=== PATIENT | female | born 1955 | race Caucasian/White ===

== ENCOUNTER → 2020-12-09 10:17 | Outpatient (CLI) | payer BC, SELFPAY ==
--- NOTE | ~2020-12-09 | XR_ITS ---
XR chest 2V DATE: 12/09/2020 10:56 INDICATION: Cough TECHNIQUE: 2 views COMPARISON: 11/04/2013 2 view chest FINDINGS: Normal heart size. Mild aortic unfolding. No hilar or mediastinal enlargement. No pulmonary infiltrate or consolidation, pleural effusion or pulmonary vascular congestion or pneumo thorax is detected. Diffuse osteopenia. There is mild degenerative change of the thoracic spine. IMPRESSION: No active cardiopulmonary disease Reviewed, dictated and finalized at location A. TRO OPTICAL ENGINEER
== END ==
PROVIDERS: PCP Family Medicine; Visit Provider Family Medicine
DX: R05 Cough (principal)
CPT/HCPCS: 71046

== ENCOUNTER → 2021-08-06 09:20 | Outpatient (CLI) | payer BC, SELFPAY ==
--- NOTE | ~2021-08-06 | XR_ITS ---
XR knee RT 3V, XR knee LT 3V 08/06/2021 09:46 Indication: Knee pain Procedure: 3 views each knee Comparison: No prior studies for comparison. Findings: There is mild bilateral tricompartment osteoarthritis of the knees. No fracture, subluxatio n or dislocation. No significant joint effusion. No foreign bodies. No focal lytic or blastic lesions . Impression: 1: Mild bilateral tricompartment osteoarthritis of the knees. Reviewed, dictated and finalized at location D. Impression: 1: Mild bilateral tricompartment osteoarthritis of the knees. Impression: 1: Mild bilateral tricompartment osteoarthritis of the knees.
== END ==
PROVIDERS: PCP Family Medicine; Visit Provider Physician Assistant
DX: M17.0 Bilateral primary osteoarthritis of knee (principal)
CPT/HCPCS: 73562

== ENCOUNTER → 2021-11-30 09:45 | Outpatient (CLI) | payer MEDICARE, OTHER, SELFPAY ==
--- NOTE | ~2021-11-30 | XR_ITS ---
XR foot RT min 3V DATE: 11/30/2021 10:04 INDICATION: Right ankle pain right foot pain. TECHNIQUE: 4 views COMPARISON: 04/19/2010 right foot 12/04/2010 right foot FINDINGS: Diffuse osteopenia. Old fracture deformity of the base of the fifth metatarsal bone. There is severe osteoarthritic change at the first metatarsophalangeal joint. There is osteoarthritic change at the interphalangeal joint of the great toe and calcaneal cuboid joint.. Mild plantar calcaneal enthesopathy without erosive change or periostitis. There are some calcificati ons along the plantar upon urinalysis. IMPRESSION: Old fracture deformity of the base of the fifth metatarsal bone Mild plantar calcaneal enthesopathy Polyarticular osteoarthritis Reviewed, dictated and finalized at location B. K OR BLOCK MAKER
--- NOTE | ~2021-11-30 | XR_ITS ---
XR ankle RT 2V DATE: 11/30/2021 10:04 INDICATION: Right ankle and right foot pain TECHNIQUE: 2 views COMPARISON: None FINDINGS: There is mild plantar calcaneal enthesopathy. No fracture or dislocation of the ankle or disruption of the ankle mortise. No periosteal reaction or bone destruction. Old ununited fracture or ununited apophysis is suggested at the base of the fifth metatarsal bone IMPRESSION: No fracture or dislocation of right ankle Reviewed, dictated and finalized at location B. NOSE THROAT PHYSICIAN
== END ==
PROVIDERS: PCP Family Medicine; Visit Provider Physician Assistant
DX: M19.071 Primary osteoarthritis, right ankle and foot (principal); M77.31 Calcaneal spur, right foot
CPT/HCPCS: 73600; 73630

== ENCOUNTER 2022-04-25 01:13 | Day surgery (SDC) | payer MEDICARE, OTHER, SELFPAY ==
--- NOTE | 2022-04-25 07:31 | WPDANESEPPF ---
Anes - Initial Pre Proc Eval Procedure: Operation Date: 04/25/22 10:30 Proposed Procedures p Screening Colonoscopy - Lawrence Ross MD Date/Time: 04/25/22 07:31 Surgeon: Lawrence Ross MD Pre Op Diagnosis: hx of colon polyps Patient Data Age: 66 Gender: F Height: 1.65 m Weight: 82 kg Allergies Allergy/AdvReac Type Severity Reaction Status Date / Time lisinopril Allergy Unknown Rash Verified 04/25/22 09:29 Sulfa (Sulfonamide Allergy Unknown Hives Verified 04/25/22 09:29 Antibiotics) amlodipine AdvReac Mild edema Verified 04/25/22 09:29 Home Medications Medication Instructions Recorded Confirmed Type aspirin 81 mg tablet,delayed 81 mg PO DAILY 12/07/19 04/14/22 History release cozdqokj-vuw-TH 200 mcg-vit K 15 1 tablet PO DAILY 12/07/19 04/14/22 History mcg-lycope 150 rsd-vuvxhn-rphn tablet (Ocuvite Eye Plus Multi) multivitamin 1 tablet PO DAILY 12/09/19 04/14/22 History pravastatin 40 mg tablet 40 mg PO DAILY #90 tabs 02/07/22 04/14/22 Rx meloxicam 7.5 mg tablet 7.5 mg PO DAILY 02/11/22 04/14/22 History hydrochlorothiazide 25 mg tablet 25 mg PO DAILY #90 tabs 02/14/22 04/14/22 Rx Patient hx anesthesia problems: none Family hx anesthesia problems: none Results Review: All pre-operative results and documents have been reviewed as part of the pre-operative evaluation. [facility] Past Medical History Medical History (Updated 04/25/22 @ 09:16 by Lawrence Ross MD) Anxiety Diverticulosis History of colon polyps HLD (hyperlipidemia) HTN (hypertension) Internal hemorrhoids Family History Family History Father Family history of cardiovascular disease Family history of lung cancer Mother Family history of lung cancer Sibling Family history of lung cancer Other Family history of alcoholism Family history of arthritis Family history of malignant neoplasm Social History Social History Smoking packs per day: 1 Smoking cigarettes per day: 20.0 Years smoked: 4 Smoking pack-years: 4.00 Smoking status: Former smoker Tobacco type: cigarettes Second hand tobacco smoke exposure: No Smoking end date: 10/16/77 Alcohol intake: current Alcohol use details: occasional Substance use: never Substance use type: does not use Living arrangements: with family Gender identity (if verbalized by the patient): Female Sexual Orientation (if Verbalized by the Patient): Straight or Heterosexual Spiritual care concerns: No Anes - Eval Final PreProcedure Day of Procedure 04/25/22 07:31 Patient weight: obese Heart: regular rate and rhythm Lungs: clear to auscultation Airway: Mallampati scale class II Neurological: alert and oriented Last oral intake: >/= 8 hours ASA classification: III Emergent: no Anesthetic plan: proceed Anesthesia type and monitoring: general GIVS and standard monitoring Results Review: All pre-operative results and documents have been reviewed as part of the pre-operative evaluation. Informed Consent: The patient's anesthetic plan and its attendant risks and benefits were discussed with the patient/family/POA. Questions were solicited and answers provided to the satisfaction of the patient/family/POA.
--- NOTE | 2022-04-25 09:15 | PM.HPGS ---
History of Present Illness History of Present Illness Consent: Risks, benefits, and alternatives have been discussed and questions answered. Patient agrees to proceed with procedure. Chief complaint: hx of colon polyps Narrative: Fabiola Aguilar is a 66 year old female Referred for colon cancer screening. Her last colonoscopy was 10 years ago who Review of Systems Review of Systems: All systems reviewed & are unremarkable except as noted in HPI and below PMFSH Past Medical History Medical History (Updated 04/25/22 @ 09:16 by Lawrence Ross MD) Anxiety Diverticulosis History of colon polyps HLD (hyperlipidemia) HTN (hypertension) Internal hemorrhoids Family History Family History Father Family history of cardiovascular disease Family history of lung cancer Mother Family history of lung cancer Sibling Family history of lung cancer Other Family history of alcoholism Family history of arthritis Family history of malignant neoplasm Social History Social History Smoking packs per day: 1 Smoking cigarettes per day: 20.0 Years smoked: 4 Smoking pack-years: 4.00 Smoking status: Former smoker Tobacco type: cigarettes Second hand tobacco smoke exposure: No Smoking end date: 10/16/77 Alcohol intake: current Alcohol use details: occasional Substance use: never Substance use type: does not use Living arrangements: with family Gender identity (if verbalized by the patient): Female Sexual Orientation (if Verbalized by the Patient): Straight or Heterosexual Spiritual care concerns: No Meds Home Medications and Allergies Home Medications Medication Instructions Recorded Confirmed Type aspirin 81 mg tablet,delayed 81 mg PO DAILY 12/07/19 04/14/22 History release csildwyi-gak-KC 200 mcg-vit K 15 1 tablet PO DAILY 12/07/19 04/14/22 History mcg-lycope 150 wqq-rumvcd-ykbj tablet (Ocuvite Eye Plus Multi) multivitamin 1 tablet PO DAILY 12/09/19 04/14/22 History pravastatin 40 mg tablet 40 mg PO DAILY #90 tabs 02/07/22 04/14/22 Rx meloxicam 7.5 mg tablet 7.5 mg PO DAILY 02/11/22 04/14/22 History hydrochlorothiazide 25 mg tablet 25 mg PO DAILY #90 tabs 02/14/22 04/14/22 Rx Allergies Allergy/AdvReac Type Severity Reaction Status Date / Time lisinopril Allergy Unknown Rash Verified 04/25/22 09:29 Sulfa (Sulfonamide Allergy Unknown Hives Verified 04/25/22 09:29 Antibiotics) amlodipine AdvReac Mild edema Verified 04/25/22 09:29 Exam Resp: Auscultation: clear to auscultation bilaterally Cardio: Rate: regular rate Rhythm: regular rhythm GI: GI Palp: Yes Soft to palpation and No Tenderness to palpation present (GI) Assessment and Plan Assessment and plan (1) Colon cancer screening: Code(s): Z12.11 - Encounter for screening for malignant neoplasm of colon Status: Acute Assessment and Plan: Colonoscopy with possible biopsy or polypectomy or cautery or injection of substances.
[2022-04-25 09:30] VITALS: BP 123/92; PULSE 77; RESP 18; TEMP 36.2; O2SAT 99
[2022-04-25] MEDS: LACTATED RINGERS 1,000 ML 150 ML IV CONT (09:47)
[2022-04-25 10:41] VITALS: BP 106/57; PULSE 80; RESP 16; O2SAT 100
[2022-04-25 10:51] VITALS: BP 113/65; PULSE 67; RESP 22; O2SAT 97
[2022-04-25 11:01] VITALS: BP 113/69; PULSE 66; RESP 16; O2SAT 98
== END 2022-04-25 11:05 | disposition home or self-care (01) ==
PROVIDERS: PCP Family Medicine; Visit Provider Internal Medicine Gastroenterology
PROC: 0DJD8ZZ Inspection of Lower Intestinal Tract, Via Natural or Artificial Opening Endoscopic (ICD-10-PCS; CPT 45378; principal; 2022-04-25 10:30)
DX: Z12.11 Encounter for screening for malignant neoplasm of colon (principal); K62.1 Rectal polyp; K57.30 Diverticulosis of large intestine without perforation or abscess without bleeding; I10 Essential (primary) hypertension; E78.5 Hyperlipidemia, unspecified; Z79.82 Long term (current) use of aspirin; Z87.891 Personal history of nicotine dependence; E66.9 Obesity, unspecified; Z68.30 Body mass index [BMI] 30.0-30.9, adult
CPT/HCPCS: 45380; 88305; J2704; J7120

== ENCOUNTER → 2022-08-16 08:49 | Outpatient (CLI) | payer MEDICARE, OTHER, SELFPAY ==
--- NOTE | ~2022-08-16 | XR_ITS ---
XR knee LT 3V DATE: 08/16/2022 09:21 INDICATION: Pain of left leg for one month TECHNIQUE: AP, lateral, sunrise views COMPARISON: 08/06/2021 left knee FINDINGS: There is mild particular spurring at the patellofemoral and medial compartments and minimal loss of height of medial compartment joint space. No fracture or dislocation or joint effusion. No periosteal reaction or bone destruction, radiopaque intra-articular loose body or chondrocalcinosis. Superior pole patellar enthesopathy at quadriceps tendon insertion IMPRESSION: Mild patellofemoral and medial compartment osteoarthritis Reviewed, dictated and finalized at location A.
--- NOTE | ~2022-08-16 | XR_ITS ---
XR hip BI 2V w AP pelvis DATE: 08/16/2022 09:21 INDICATION: Pain radiating to left leg for one month TECHNIQUE: AP pelvis. AP and lateral views of each hip. COMPARISON: None FINDINGS: Mild levoscoliosis of lumbar spine. Moderately severe degenerative disc disease at L4-5, L5 -S1. Osteitis pubis. Normal alignment at the pubic symphysis and sacroiliac joints. Mild bilateral hip osteoarthritis. No fracture or bone destruction of the pelvis. No fracture, dislocation, avascular necrosis or bone d estruction of either hip. IMPRESSION: Mild lumbar levoscoliosis Degenerative disease particularly at L4-5, L5-S1 Osteitis pubis Mild bilateral hip osteoarthritis Reviewed, dictated and finalized at location A.
--- NOTE | ~2022-08-16 | XR_ITS ---
XR lumbar spine 2-3V DATE: 08/16/2022 09:21 INDICATION: Pain radiating down left leg for one month TECHNIQUE: AP, lateral, coned lateral lumbosacral views COMPARISON: None FINDINGS: Normal alignment of the lumbar spine. There is slight levoscoliosis of lumbar spine. No fracture or bone destruction is detected. Included lower thoracic and lumbar pedicles are intact. There is mild degenerative disc disease at L1-2, L2-3 and L3-4. There is moderately severe degenerati ve disc disease at L4-5. The sacroiliac joints are intact. There is a prominent amount of fecal material in the colon. IMPRESSION: Multilevel degenerative disc disease, greatest at L4-5 Reviewed, dictated and finalized at location A.
--- NOTE | ~2022-08-16 | XR_ITS ---
XR ankle LT min 3V DATE: 08/16/2022 09:21 INDICATION: Left leg, ankle pain for one month TECHNIQUE: 4 views COMPARISON: None FINDINGS: There are lag screws within the calcaneus. Prominent plantar calcaneal enthesopathy. Osteoarthritic changes are noted at the tarsal joints. No fracture or dislocation of the ankle or disruption of the ankle mortise. No periosteal reaction or bone destruction of the ankle. IMPRESSION: Postoperative change of calcaneus Plantar calcaneal enthesopathy Osteoarthritis at tarsal joints Reviewed, dictated and finalized at location A.
== END ==
PROVIDERS: PCP Family Medicine; Visit Provider Physician Assistant
DX: M51.36 Other intervertebral disc degeneration, lumbar region (principal); M77.32 Calcaneal spur, left foot; M19.072 Primary osteoarthritis, left ankle and foot; M17.12 Unilateral primary osteoarthritis, left knee; M51.37 Other intervertebral disc degeneration, lumbosacral region; M16.0 Bilateral primary osteoarthritis of hip
CPT/HCPCS: 72100; 73521; 73562; 73610

== ENCOUNTER → 2022-08-31 09:02 | Outpatient (CLI) | payer MEDICARE, OTHER, SELFPAY ==
--- NOTE | ~2022-08-31 | DEXA_ITS ---
Bone Density Report Name: DANNIELLE PEREZ Age: 66 Sex: Female Ethnicity: White Date of : 1955 Indication: postmenopausal; screening for osteoporosis; height loss; hysterectomy; Referring Provider: JHONATHAN RAMIREZ Study: Bone densitometry was performed. Exam Date: August 31, 2022 Accession number: [id number] Bone Density: Region BMD T-score Z-score Classification AP Spine (L1-L4) 1.072 0.2 2.0 Normal Femoral Neck (Left) 0.989 1.3 2.8 Normal Total Hip (Left) 1.126 1.5 2.8 Normal Femoral Neck (Right) 1.100 2.3 3.8 Normal Total Hip (Right) 1.113 1.4 2.7 Normal Total Hip Mean 1.120 1.5 2.8 Normal World Health Organization criteria for BMD impression classify patients as: Normal (T-score at or above -1.0), Osteopenia (T-score between -1.0 and -2.5), or Osteoporosis (T-score at or below -2.5). 10-year Fracture Risk: FRAX not reported because: All T-scores for Spine Total, Hip Total, Femoral Neck at or above -1.0 Previous Exams: Region Exam Age BMD T-score BMD Change BMD Change Date g/cm2 vs Baseline vs Previous AP Spine(L1-L4) 08/31/2022 66 1.072 0.2 -0.065 -0.065 09/09/2002 46 1.138 0.8 Total Hip(Left) 08/31/2022 66 1.126 1.5 -0.026 -0.026 09/09/2002 46 1.152 1.7 Total Hip(Right) 08/31/2022 66 1.113 1.4 -0.074 -0.074 09/09/2002 46 1.187 2.0 *Denotes significance at 95% confidence level, LSC for AP Spine = 0.022 g/cm2, LSC for Total Hip = 0.027 g/cm2 Clinical Information Provided by Patient: Has used the following medications: Calcium Has the following medical conditions: Hysterectomy Patient maximum height was 65 Menopause Age: 39 Does not regularly consume dairy products Drinks caffeinated beverages Onset of menses at age 16 Number of children 2 Missed period for more than 6 months in a row Impression: The patient has normal bone mass. No significant bone loss was observed. Discussion: BONE DENSITY IS ABOVE THE MINIMUM DESIRABLE LEVEL AT ALL SKELETAL SITES TESTED. This patient?s bone mineral density is above the minimum desirable level (T-score -1.0 or better) at all sites measured. The patient should follow a healthful lifestyle (good nutrition with adequate calcium and vitamin D, and appropriate weight-bearing exercise). Follow-Up: Consider repeating this study in 5 years or sooner if there is some new clinical indication. Reported by: KATHI
== END ==
PROVIDERS: PCP Family Medicine; Visit Provider Physician Assistant
DX: Z78.0 Asymptomatic menopausal state (principal)
CPT/HCPCS: 77080

== ENCOUNTER 2022-10-04 09:38 | Outpatient (CLI) | payer MEDICARE, OTHER, SELFPAY ==
--- NOTE | ~2022-10-04 | MR_ITS ---
EXAMINATION: MR knee LT wo con DATE: 10/04/2022 10:14 INDICATION: Left knee pain TECHNIQUE: Magnetic resonance imaging (MRI) of the left knee was performed without intravenous contra st. Sequences included coronal PD-weighted FSE, coronal PD-weighted FS FSE, sagittal T2-weighted FSE , sagittal PD-weighted FS FSE and axial PD weighted fat saturated FSE. COMPARISON: None. FINDINGS: Medial compartment: Medial extrusion of the medial meniscal body with full/near full-thickness radial tear near the poste rior root of the posterior horn with some secondary fraying along the tear margins. Partial-thickness cartilage loss along the medial tibial plateau most prominent anteriorly and medially. Small region of subarticular sclerosis underlying the medial side of the medial tibial plateau. Partial-thickness cartilage loss with some scattered subtle chondral surface regularity along the weightbearing medial femoral condyle which is most severe at the central weightbearing medial femoral condyle where it quinn ears to involve greater than 50% the cartilage thickness. Lateral compartment: Lateral meniscus is normal. Articular cartilage is normal. Patellofemoral compartment: Deep chondral ulceration at the patellar apical ridge and medial facet with couple small foci of unde rlying subarticular edema-like signal change. Subarticular cystlike changes underlying additional reg ion of deep chondral ulceration and fissuring at the inferior aspect of the lateral patellar facet. P artial-thickness chondral ulceration with deep fissuring and underlying cortical irregularity and sub articular edema-like signal change at the inferior aspect of the medial trochlea. Less severe partial thickness chondral ulceration without degenerative subchondral changes at the trochlear groove and m edial side of the lateral trochlea. Ligaments and tendons: Anterior and posterior cruciate ligaments are normal. The medial collateral ligament and fibular berry ateral ligament complex are normal. Mild tendinopathy at the proximal distal patellar tendon and mini mal distal quadriceps tendinopathy. The visualized medial and lateral hamstring tendons as well as th e iliotibial band are normal. Fluid: Small left knee joint effusion. No loose osteochondral bodies identified. Osseous/other: Bone alignment is normal. No fracture or pathologic marrow replacing process. IMPRESSION: 1. Radial tear near the posterior root of the medial meniscus. 2. Mild patellofemoral osteoarthritis with high-grade patellar and trochlear chondromalacia. 3. Mild osteoarthritis with moderate to high grade chondromalacia in the medial compartment. 4. Likely reactive small left knee joint effusion. Reviewed, dictated and finalized at location L. NCIAL SERVICES REP IMPRESSION: 1. Radial tear near the posterior root of the medial meniscus. 2. Mild patellofemoral osteoarthritis with high-grade patellar and trochlear ch ondromalacia. 3. Mild osteoarthritis with moderate to high grade chondromalacia in the medial compartment. 4. Likely reactive small left knee joint effusion.
== END 2022-10-04 09:39 | disposition home or self-care (01) ==
PROVIDERS: PCP Family Medicine; Visit Provider Physician Assistant
DX: M17.12 Unilateral primary osteoarthritis, left knee (principal)
CPT/HCPCS: 73721

== ENCOUNTER 2023-01-26 08:17 | Emergency (ER) | payer MEDICARE, OTHER, SELFPAY ==
--- NOTE | ~2023-01-26 | XR_ITS ---
EXAMINATION: XR chest 2V 01/26/2023 08:39 INDICATION: Cough with wheezing PROCEDURE: 2 view chest COMPARISON: Comparison to multiple prior studies sequentially, with oldest reviewed study dated 11/2010. FINDINGS: The lungs are clear. The cardiomediastinal silhouette is within normal limits. There are no pleural effusions. There is no pneumothorax suspected. IMPRESSION: 1: NO ACUTE CARDIOPULMONARY DISEASE. Reviewed, dictated and finalized at location L.
[2023-01-26 08:35] VITALS: BP 139/92; PULSE 112; RESP 16; TEMP 37.9; O2SAT 95
--- NOTE | 2023-01-26 08:56 | ED.URI ---
HPI - URI/Sore Throat General Chief Complaint: Upper Respiratory Infection Stated Complaint: COUGH/CHEST PAIN/WHEEZING/NOT SLEEPING Time Seen by Provider: 01/26/23 08:56 Source: patient and RN notes reviewed Mode of arrival: ambulatory Limitations: no limitations History of Present Illness HPI Narrative: 67 y/o female presented for c/o cough, wheezing when laying flat, and sinus congestion and drainage for 4 days. Also reports fatigue with exertion. Taking several OTC meds without relief. Denies n/v/d/f/c. Tested negative for Covid x2 since onset. MD elicited complaint: cough Related Data Home Medications Medication Instructions Recorded Confirmed aspirin 81 mg tablet,delayed 81 mg PO DAILY 12/07/19 01/26/23 release qgpwxtzc-ktj-MG 200 mcg-vit K 15 1 tablet PO DAILY 12/07/19 01/26/23 mcg-lycope 150 put-zsdmnh-fbny tablet (Ocuvite Eye Plus Multi) multivitamin 1 tablet PO DAILY 12/09/19 01/26/23 Allergies Allergy/AdvReac Type Severity Reaction Status Date / Time lisinopril Allergy Unknown Rash Verified 01/26/23 08:26 Sulfa (Sulfonamide Allergy Unknown Hives Verified 01/26/23 08:26 Antibiotics) amlodipine AdvReac Mild edema Verified 01/26/23 08:26 Review of Systems Review of Systems: CONSTITUTIONAL: Reports malaise Denies chills, sweats, fever EYES: Denies visual changes, redness, or discharge ENT: Reports rhinorrhea, congestion, Denies otalgia, sore throat CARDIOVASCULAR: Denies chest pain, palpitations, edema RESPIRATORY: Reports cough, post nasal drainage. Denies dyspnea GASTROINTESTINAL: Denies abdominal pain, nausea, vomiting, diarrhea SKIN: Denies rash or itching MUSCULOSKELETAL: Denies myalgia NEUROLOGIC: Denies headache PMFSH Past Medical History Medical History Anxiety Degenerative arthritis of left knee Diverticulosis History of colon polyps HLD (hyperlipidemia) HTN (hypertension) Internal hemorrhoids Surgical History Surgical History H/O foot surgery Foot Reconstruction - Dr. Toure H/O lumbar discectomy Dr. Harvey H/O repair of rotator cuff Dr. Toure - Left Shoulder unknown - Right Shoulder H/O: hysterectomy Dr. Harvey Family History Family History Father Family history of cardiovascular disease Family history of lung cancer Mother Family history of lung cancer Sibling Family history of lung cancer Other Family history of alcoholism Family history of arthritis Family history of malignant neoplasm Social History Social History Smoking packs per day: 1 Smoking cigarettes per day: 20.0 Years smoked: 4 Smoking pack-years: 4.00 Smoking status: Former smoker Tobacco type: cigarettes Second hand tobacco smoke exposure: No Smoking end date: 10/16/77 Alcohol intake: current Alcohol use details: occasional Substance use: never Substance use type: does not use Living arrangements: with family Occupation/Education: retired Gender identity (if verbalized by the patient): Female Sexual Orientation (if Verbalized by the Patient): Straight or Heterosexual Spiritual care concerns: No Exam Narrative: GENERAL: mildly Ill-appearing, nontoxic EYES: PERRLA, conjunctivae clear ENT: Mucous membranes moist. TMs pearly reece with dull light reflex bilaterally; no tragal tenderness. Oropharynx normal, no drooling, no hoarseness, no trismus, uvula midline. No tripod positioning, muffled voice, soft palate or pharyngeal wall bulging NECK: Supple. No lymphadenopathy CHEST: Clear to auscultation, breath sounds equal. No wheezing, rhonchi, rales, or stridor. No respiratory distress, speaks in full sentences. HEART: Regular rate and rhythm. No murmur heard. SKIN: Warm, dry, no rash. NEURO: Alert and oriented x3. PSYCH
== END 2023-01-26 09:08 | disposition home or self-care (01) ==
PROVIDERS: Emergency Provider Nurse Practitioner Family; PCP Family Medicine
DX: J40 Bronchitis, not specified as acute or chronic (principal); Z87.891 Personal history of nicotine dependence; E78.5 Hyperlipidemia, unspecified; I10 Essential (primary) hypertension; Z79.82 Long term (current) use of aspirin
CPT/HCPCS: 71046; 87804; 99213; G0463

== ENCOUNTER 2023-02-22 16:32 | Outpatient (CLI) | payer MEDICARE, OTHER, SELFPAY ==
--- NOTE | ~2023-02-22 | CT_ITS ---
EXAMINATION: CT abdomen pelvis w con DATE: 02/22/2023 17:10 INDICATION: Right lower quadrant abdominal pain TECHNIQUE: Computed tomography (CT) of the abdomen and pelvis was performed with 100 mL Omnipaque-350 intravenous contrast. Automated exposure control and iterative reconstruction technique were employe d. The dose-length product was 645.10 mGy-cm. COMPARISON: CT abdomen dated 12/16/2004 FINDINGS: Minimal dependent atelectasis in the right lower lobe. Heart size is normal. No pericardial or pleura l effusion. Liver, gallbladder, spleen, pancreas, bilateral adrenal glands and kidneys are normal. Th ere is moderate scattered colonic diverticulosis without adjacent inflammatory change to suggest dive rticulitis. Small bowel and appendix are normal. Bladder is normal. The uterus is not identified and has likely been surgically resected. No free intraperitoneal gas or fluid. No pathologically enlarged abdominal or pelvic lymphadenopathy. Moderate to severe thoracolumbar spondylosis. Small fat-contain ing umbilical hernia. IMPRESSION: 1. No acute intra-abdominal/pelvic process. Specifically the appendix is normal. 2. Diverticulosis. Reviewed, dictated and finalized at location A. IMPRESSION: 1. No acute intra-abdominal/pelvic process. Specifically the appendix is normal . 2. Diverticulosis.
== END 2023-02-22 16:33 | disposition home or self-care (01) ==
PROVIDERS: PCP Family Medicine; Visit Provider Family Medicine
DX: R10.31 Right lower quadrant pain (principal); K57.30 Diverticulosis of large intestine without perforation or abscess without bleeding
CPT/HCPCS: 74177; Q9967

== ENCOUNTER → 2023-11-27 08:45 | Outpatient (CLI) | payer MEDICARE, OTHER, SELFPAY ==
--- NOTE | ~2023-11-27 | MR_ITS ---
MRI of the right shoulder Technique: Axial proton-density fat-sat images, coronal proton density fat-sat and T2 fat-sat images, and sagittal T1-weighted and T2 fat-sat images were acquired. Clinical History: Pain Findings: There is zevz-qk-kfoutaom AC joint degenerative change. Coracoclavicular, coracoacromial, a nd coracohumeral ligaments appear intact. There is full-thickness tear involving essentially the entire infraspinatus tendon distally, with flu id-filled gap measuring approximately 1.4 x 1.6 cm in extent. Supraspinatus tendon is intact, without partial or full-thickness tear. Subscapularis tendon is intact. Tendon of long head of the biceps is intact. No labral tear evident. Inferior glenohumeral ligament is intact. No degenerative change of the glenohumeral joint. No muscle atrophy or edema. Impression: Complete, full-thickness tear involving essentially the entire infraspinatus tendon, as detailed abov e. Dbgj-bu-bpsdxirj AC joint degenerative change. Reviewed, dictated and finalized at location . SMISSION AND PROTECTION ENGINEER Impression: Complete, full-thickness tear involving essentially the entire infraspinatus te ndon, as detailed above. [id number]-pq-xlkranqk AC joint degenerative change.
== END ==
PROVIDERS: PCP Family Medicine; Visit Provider Orthopaedic Surgery
DX: M75.101 Unspecified rotator cuff tear or rupture of right shoulder, not specified as traumatic (principal); M19.011 Primary osteoarthritis, right shoulder
CPT/HCPCS: 73221

== ENCOUNTER 2024-03-01 07:06 | Outpatient (CLI) | payer MEDICARE, OTHER, SELFPAY ==
--- NOTE | ~2024-03-01 | XR_ITS ---
Left Shoulder Technique: AP and axillary views were obtained. Clinical History: Pain Findings: No fracture or dislocation is seen. Osseous alignment is anatomic. The glenohumeral and acr omioclavicular joint spaces are preserved. Small soft tissue calcification present probably near the deltoid insertion of the acromion.. Impression: Small soft tissue calcification probably involving the deltoid insertion at the acromion. Reviewed, dictated and finalized at location M. Impression: Small soft tissue calcification probably involving the deltoid insertion at the acromion.
== END 2024-03-01 07:07 ==
PROVIDERS: PCP Family Medicine; Visit Provider Physician Assistant
DX: M25.812 Other specified joint disorders, left shoulder (principal)
CPT/HCPCS: 73030

== ENCOUNTER 2024-03-26 07:58 | Outpatient (CLI) | payer MEDICARE, OTHER, SELFPAY ==
--- NOTE | ~2024-03-26 | MR_ITS ---
MRI of the left shoulder Technique: Axial proton-density fat-sat images, coronal proton density fat-sat and T2 fat-sat images, and sagittal T1-weighted and T2 fat-sat images were acquired. Clinical History: Joint is Findings: There is evidence of prior postoperative change at the AC joint region, probable prior suba cromial decompression. Cortical clavicular ligament intact. Coracohumeral ligament intact. Coracoacro mial ligament probably intact. There is evidence of prior rotator cuff repair surgery. No recurrent partial or full-thickness tear o f the supraspinatus or infraspinatus tendon identified. Subscapularis tendon intact, with mild tendin osis. Tendon of long head of the biceps is intact. No definite labral tear seen. Inferior glenohumeral ligament intact. No significant degenerative change or effusion of the glenohum eral joint. No significant fluid distention of the subacromial/subdeltoid bursa. There is fatty atrop hy of the infraspinatus muscle belly. Impression: Evidence of prior rotator cuff repair surgery and subacromial decompression. No definite recurrent ro tator cuff tear seen. 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 Reviewed, dictated and finalized at location . Impression: Evidence of prior rotator cuff repair surgery and subacromial decompression. No definite recurrent rotator cuff tear seen. 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
== END 2024-03-26 07:59 ==
LOC: MICIMG 07:59
PROVIDERS: PCP Family Medicine; Visit Provider Orthopaedic Surgery
DX: M25.812 Other specified joint disorders, left shoulder (principal)
CPT/HCPCS: 73221

== ENCOUNTER 2024-06-23 08:17 | Emergency (ER) | payer MEDICARE, OTHER, SELFPAY ==
[2024-06-23 08:33] VITALS: BP 137/79; PULSE 70; RESP 16; TEMP 36.4; O2SAT 97
--- NOTE | 2024-06-23 08:33 | ED.GENADULT ---
HPI - General Adult General Chief complaint: Upper Respiratory Infection Stated complaint: + COVID/L EAR CLICKING/DIZZY/FALL Time Seen by Provider: 06/23/24 08:34 Source: patient Mode of arrival: ambulatory Limitations: no limitations History of Present Illness HPI narrative: 68-year-old female patient presents to the [facility] with complaints of left ear pain and feeling dizzy. Patient states she recently came back from an [facility] cruise and when she was on the plane the cabin pressure dropped with a distended really quickly and she has been unable to pop her ears since then. Patient states that today when she got up she felt dizzy and fell back onto the bed. Denies hitting head or loss of consciousness. Patient states she was also diagnosed with COVID on Monday was given Tyrel marrero and Stephanie Gallegos from her primary doctor. Patient states she continues to have a sore throat and a cough. Related Data Home Medications Medication Instructions Recorded Confirmed aspirin 81 mg tablet,delayed 81 mg PO DAILY 12/07/19 06/23/24 release [id number] 200 mcg-vit K 15 1 tablet PO DAILY 12/07/19 06/23/24 mcg-lycope 150 vdk-xboaim-unzt tablet (Ocuvite Eye Plus Multi) multivitamin 1 tablet PO DAILY 12/09/19 06/23/24 Allergies Allergy/AdvReac Type Severity Reaction Status Date / Time lisinopril Allergy Unknown Rash Verified 06/23/24 08:25 Sulfa (Sulfonamide Allergy Unknown Hives Verified 06/23/24 08:25 Antibiotics) amlodipine AdvReac Mild edema Verified 06/23/24 08:25 Review of Systems Review of Systems: CONSTITUTIONAL: Denies fever, chills, or sweats. EYES: Denies visual changes, redness, or discharge. ENT: Denies rhinorrhea, congestion, positive sore throat, Positive left otalgia. CARDIOVASCULAR: Denies chest pain, palpitations, or edema. RESPIRATORY: positive cough or dyspnea. GASTROINTESTINAL: Denies abdominal pain, nausea, vomiting, or diarrhea. GENITOURINARY: Denies dysuria or hematuria. SKIN: Denies rash or itching. MUSCULOSKELETAL: Denies back pain, joint pain, or myalgia. NEUROLOGIC: Denies headache, numbness, or weakness. positive dizziness PSYCHIATRIC: Denies anxiety or depression. [facility]LY [facility] Past Medical History Medical History Anxiety Arthritis of left acromioclavicular joint Arthritis of right acromioclavicular joint Degenerative arthritis of left knee Diverticulosis History of colon polyps HLD (hyperlipidemia) HTN (hypertension) Internal hemorrhoids Mass of joint of left shoulder Right rotator cuff tear Rotator cuff tear arthropathy of left shoulder Surgical History Surgical History H/O foot surgery Foot Reconstruction - Dr. Toure H/O lumbar discectomy Dr. Harvey H/O repair of rotator cuff Dr. Toure - Left Shoulder unknown - Right Shoulder H/O: hysterectomy Dr. Harvey Family History Family History Father Family history of cardiovascular disease Family history of lung cancer Mother Family history of lung cancer Sibling Family history of lung cancer Other Family history of alcoholism Family history of arthritis Family history of malignant neoplasm Social History Social History Smoking packs per day: 1 Smoking cigarettes per day: 20.0 Years smoked: 4 Smoking pack-years: 4.00 Smoking status: Former smoker Tobacco type: cigarettes Second hand tobacco smoke exposure: No Smoking end date: 10/16/77 Alcohol intake: current Alcohol use details: occasional Substance use: never Substance use type: does not use Living arrangements: with family Occupation/Education: retired Gender identity (if verbalized by the patient): Female Sexual Orientation (if Verbalized by the Patient): Straight or Heterosexual Spiritual
[2024-06-23 08:54] LABS: EDSTREPNEGPOS1 Negative (Negative)
== END 2024-06-23 08:56 | disposition home or self-care (01) ==
PROVIDERS: Emergency Provider Nurse Practitioner Family; PCP Family Medicine
DX: H73.893 Other specified disorders of tympanic membrane, bilateral (principal); R42 Dizziness and giddiness; Z87.891 Personal history of nicotine dependence; E78.5 Hyperlipidemia, unspecified; I10 Essential (primary) hypertension; M19.012 Primary osteoarthritis, left shoulder; M19.011 Primary osteoarthritis, right shoulder; M17.12 Unilateral primary osteoarthritis, left knee; Z79.82 Long term (current) use of aspirin
CPT/HCPCS: 87081; 87880; 99213; G0463

== ENCOUNTER 2025-01-30 09:44 | Emergency (ER) | payer MEDICARE, OTHER, SELFPAY ==
[2025-01-30 09:56] VITALS: BP 131/89; PULSE 80; RESP 16; TEMP 36.4; O2SAT 100
--- NOTE | 2025-01-30 10:07 | ED_ITS ---
HPI - Back Pain/Injury General Chief Complaint: Back Pain/Injury Stated Complaint: Lower Back Pain Time Seen by Provider: 01/30/25 09:56 Source: patient Mode of arrival: ambulatory Limitations: no limitations History of Present Illness HPI Narrative: Patient presents today complaining of the pain to her lower back on the left side. She has been taking Flexeril for pain, without relief. She states that pain does increase with movement. No numbness, tingling, or radiation noted. Denies loss of bowel or bladder function. Related Data Home Medications ?Medication ?Instructions ?Recorded ?Confirmed ?Last Taken ?Type aspirin 81 mg tablet,delayed 81 mg PO DAILY 12/07/19 01/30/25 04/24/22 History release pukkubhx-aco-BG 200 mcg-vit K 15 1 tablet PO DAILY 12/07/19 01/30/25 04/24/22 History mcg-lycope 150 zla-kpttwf-spyl tablet (Ocuvite Eye Plus Multi) multivitamin 1 tablet PO DAILY 12/09/19 01/30/25 04/24/22 History Allergies Allergy/AdvReac Type Severity Reaction Status Date / Time lisinopril Allergy Unknown Rash Verified 01/30/25 09:54 Sulfa (Sulfonamide Allergy Unknown Hives Verified 01/30/25 09:54 Antibiotics) amlodipine AdvReac Mild edema Verified 01/30/25 09:54 Review of Systems Review of Systems: CONSTITUTIONAL: Denies body aches, fever, chills EYES: Denies visual changes CARDIOVASCULAR: Denies chest pain, palpitations, or edema. RESPIRATORY: Denies cough or dyspnea. GASTROINTESTINAL: Denies abdominal pain, nausea, vomiting, or diarrhea. SKIN: Denies rash, itching, or wounds. MUSCULOSKELETAL: reports low left back pain. NEUROLOGIC: Denies headache, numbness, tingling, or weakness. All systems reviewed & are unremarkable except as noted in HPI and below PMFSH Past Medical History Medical History Anxiety Arthritis of left acromioclavicular joint Arthritis of right acromioclavicular joint Degenerative arthritis of left knee Diverticulosis History of colon polyps HLD (hyperlipidemia) HTN (hypertension) Internal hemorrhoids Mass of joint of left shoulder Right rotator cuff tear Rotator cuff tear arthropathy of left shoulder Surgical History Surgical History H/O foot surgery Foot Reconstruction - Dr. Toure H/O lumbar discectomy Dr. Harvey H/O repair of rotator cuff Dr. Toure - Left Shoulder unknown - Right Shoulder H/O: hysterectomy Dr. Harvey Family History Family History Father Family history of cardiovascular disease Family history of lung cancer Mother Family history of lung cancer Sibling Family history of lung cancer Other Family history of alcoholism Family history of arthritis Family history of malignant neoplasm Social History Social History Smoking packs per day: 1 Smoking cigarettes per day: 20.0 Years smoked: 4 Smoking pack-years: 4.00 Smoking status: Former smoker Tobacco type: cigarettes Second hand tobacco smoke exposure: No Smoking end date: 10/16/77 Alcohol intake: current Alcohol use details: occasional Substance use: never Substance use type: does not use Living arrangements: with family Occupation/Education: retired Gender identity (if verbalized by the patient): Female Sexual Orientation (if Verbalized by the Patient): Straight or Heterosexual Spiritual care concerns: No Comments At time of signature, I have reviewed and agree with nursing past medical, surgical, social and family history unless otherwise noted. Please see nursing chart for further information. There is no relevant family history pertinent to the presenting complaint. Exam Narrative: GENERAL: Well-appearing, well-nourished, and in no acute distress. HEAD: Normocephalic, atraumatic. EYES: ?conjunctivae clear NECK: Supple. full ROM CHEST: Speaks in full sentences. No respiratory distress. HEART: Regular rate and rhythm. Normal and equal peripheral pulses. MUSC: ?No Vertebral point tenderness. BLEs with normal strength and sensation, normal range of motion elicits pain. ?No edema or ecchymosis, ? No open wounds, ?skin tenting, ?or obvious deformity; alignment normal, ?pulse palpable and equal bilaterally, skin warm, dry, pink. Capillary refill less than 3 seconds. Gait steady. Distal sensation intact. Saddle sensation intact. Tenderness left lower lumbar of the paraspinal muscles that extend to left lateral hip. SKIN: Warm, dry, no rash. NEURO: Alert and oriented x3.? Course Course Level of Care: Express Care Visit Vital Signs Vital signs: Vital Signs Temperature 97.5 F L 01/30/25 09:56 Pulse Rate 80 01/30/25 09:56 Respiratory Rate 16 01/30/25 09:56 Blood Pressure 131/89 01/30/25 09:56 Pulse Oximetry 100 01/30/25 09:56 Temperature 97.5 F L 01/30/25 09:56 Pulse Rate 80 01/30/25 09:56 Respiratory Rate 16 01/30/25 09:56 Blood Pressure 131/89 01/30/25 09:56 Pulse Oximetry 100 01/30/25 09:56 reviewed MDM - Back Pain/Injury MDM Narrative Medical decision making narrative: Discussed physical exam findings of lumbar strain. Steroid given for likely low back strain. No imaging indicated at this time. No red flag symptoms. Advised supportive measures and signs/symptoms to go to the ER. Pt is appropriate for outpt treatment and follow up. Differential Diagnosis Differential diagnosis: Likely other (Lumbar radiculopathy, sciatica, piriformis syndrome, diskitis, muscle strain, degenerative joint disease, cauda equina, renal colic) Critical Care Time Critical Care Time Critical Care Time: No Discharge Plan Discharge Clinical Impression: Back pain Qualifiers: Back pain location: low back pain Chronicity: acute Back pain laterality: left Sciatica presence: without sciatica Qualified Code(s): M54.50 - Low back pain, unspecified Patient Disposition: Home Condition: Stable Instructions: Back Pain (ED) Additional Instructions: Rest. Avoid pushing, pulling, lifting or anything that worsens the symptoms Tylenol 1000mg every 8 hours as needed Take steroid as prescribed. Alternate ice/heat to the site. Lidocaine or salon pas pain patch or use pain cream like icy/hot or biofreeze. Follow up with your primary care provider as needed in 1 week Go to the ER for worsening symptoms or concerns Your blood pressure was elevated above 120/80 today at Urgent Care. This puts you above the threshold for follow up. Please schedule a followup visit with your personal physician as soon as possible, for further evaluation and treatment. Even blood pressure exceeding 120/80 may indicate pre-hypertension. Patient Language: Azeri Prescriptions: New prednisone 20 mg tablet 40 mg PO DAILY 5 Days Qty: 10 0RF No Action Ocuvite Eye Plus Multi 200-15-150 mcg tablet 1 tablet PO DAILY Rx Instructions: administer with a meal and a large glass of water aspirin 81 mg tablet,delayed release (DR/EC) 81 mg PO DAILY multivitamin Tablet 1 tablet PO DAILY hydrochlorothiazide 25 mg tablet See Rx Instructions .ROUTE .COMPLEX Qty: 90 2RF Dose Instruction: TAKE 1 TABLET BY MOUTH DAILY Rx Instructions: TAKE 1 TABLET BY MOUTH DAILY pravastatin 40 mg tablet 40 mg PO DAILY Qty: 90 2RF losartan 25 mg tablet See Rx Instructions .ROUTE .COMPLEX Qty: 90 1RF Dose Instruction: TAKE 1 TABLET BY MOUTH DAILY Rx Instructions: TAKE 1 TABLET BY MOUTH DAILY meloxicam 15 mg tablet See Rx Instructions .ROUTE .COMPLEX Qty: 90 3RF Dose Instruction: TAKE 1 TABLET BY MOUTH DAILY Rx Instructions: TAKE 1 TABLET BY MOUTH DAILY cyclobenzaprine 5 mg tablet 5 mg PO TID PRN (Reason: muscle spasm) Qty: 60 0RF Follow-up/Referrals: PHYSICIAN,LEAD BURNER SUPERVISOR [Primary Care Provider] - Time of Disposition: 10:12
== END 2025-01-30 10:20 | disposition home or self-care (01) ==
DX: M54.50 Low back pain, unspecified (principal); E78.5 Hyperlipidemia, unspecified; I10 Essential (primary) hypertension; Z79.82 Long term (current) use of aspirin; Z87.891 Personal history of nicotine dependence
CPT/HCPCS: 99213; G0463

== ENCOUNTER 2025-04-24 11:52 | Outpatient (CLI) | payer MEDICARE, OTHER, SELFPAY ==
--- NOTE | ~2025-04-24 | XR_ITS ---
Lumbosacral Spine: AP and lateral views Clinical History: Pain Findings: The normal lordotic curve is maintained. No fracture or subluxation. There is advanced dege nerative disc narrowing at L4-L5. There is mild degenerative spurring in the remainder of the lumbar spine. There is advanced facet arthropathies of the lumbar spine.. The sacroiliac joints are normall y outlined. Impression: Extensive facet arthropathy. Advanced degenerative disc narrowing at L4-L5. Reviewed, dictated and finalized at location M. Impression: Extensive facet arthropathy. Advanced degenerative disc narrowing at L4-L5.
== END 2025-04-24 11:53 | disposition home or self-care (01) ==
LOC: MICIMG 11:54
PROVIDERS: PCP Family Medicine
DX: M54.50 Low back pain, unspecified (principal)
CPT/HCPCS: 72100

== ENCOUNTER 2025-06-03 09:34 | Outpatient (CLI) | payer MEDICARE, SELFPAY ==
--- NOTE | ~2025-06-03 | MR_ITS ---
MRI of the lumbar spine Clinical History: Post procedural state Technique: Axial T2-weighted images, and sagittal T1-weighted, T2-weighted, and T2 fat-sat images were acquired. Findings: No acute fracture seen. There is 6 mm retrolisthesis of L1 over L2. There is 3 mm retrolisthesis of L2 over L3. No suspicious bone marrow signal abnormality seen. At L1-L2, there is moderate to advanced degenerative disc narrowing. There is minimal disc bulge with moderate facet arthropathy. No central canal stenosis or neural foraminal narrowing. At L2-L3, there is disc bulge with advanced facet arthropathy. No central canal stenosis or neural foraminal narrowing. At L3-L4, there is mild disc bulge with advanced facet arthropathy. No central canal stenosis or neural foraminal narrowing. At L4-L5, there is moderate degenerative disc narrowing. There is diffuse disc bulge with moderate facet arthropathy. No central canal stenosis. There is moderate right neural foraminal narrowing. Left neural foramen preserved. At L5-S1, there is left foraminal disc osteophyte complex. No central canal stenosis. There is mild to moderate left neural foraminal narrowing. Right neural foramen preserved. Paravertebral soft tissues are unremarkable. Impression: Mild to moderate degenerative change overall, as detailed above. 6 mm retrolisthesis of L1 over L2. 3 mm retrolisthesis of L2 over L3. Reviewed, dictated and finalized at [facility]. Impression: Mild to moderate degenerative change overall, as detailed above. 6 mm retrolisthesis of L1 over L2. 3 mm retrolisthesis of L2 over L3.
--- OUTSIDE RECORDS SUMMARY | 2025-06-03 09:57 | XMS_ITS | Clinical Summary ---
Author Organization [facility] Address [address] [place] [address] Care Team Providers Care Senior C Web Developer Name Role Phone Messi Back MD Primary Care Provider Source Comments [facility],non-owned Affiliates and Associated Physician Practices is amultiple site organization consisting of ambulatory clinics and hospital sitesin [place], [place] and [place]. This disclosure is being madepursuant to the Care Everywhere program and may not contain all information available regarding this patient. Last updated [email or web address].[email or web address] Allergies Active Allergy Reactions Criticality Noted Date Comments Sulfa Drugs Urticaria Medium 07/27/2018 Immunizations Immunization Administration Dates Next Due iNFLUENZA VACCINE, RECOM-OATES, QUADR. (FLUBLOCK QUADRIVALENT; 18Y+) (RIV4) 07/27/2018 Social History Tobacco Use Types Packs/Day Years Used Date Smoking Tobacco: Never Assessed Comments Unknown Sex and Gender Information Value Date Recorded Sex Assigned at Not on file Legal Sex Female 8:48 AM CDT Gender Identity Not on file Sexual Orientation Not on file Plan of Treatment Health Maintenance Due Date Last Done Comments BONE DENSITY TESTING 1956 COLOGUARD (AGES 45-75) - COL ON CA SCREENING 1956 COLON MONITORING 1956 COLONOSCOPY - COLON CA SCREENING 1956 CT COLONOGRAPHY - COLON CA SCREENING 1956 Colorectal Cancer Screening 1956 FIT - COLON CA SCREENING 1956 FLEX SIG - COLON CA SCREENING 1956 LIPID TESTING 1956 MAMMOGRAM 1956 HEPATITIS C SCREENING 10/28/1974 DTAP/TDAP/TD VACCINES (1 - Tdap) 1975 PNEUMOCOCCAL VACCINE 50+ (1 of 1 - PCV) 2006 ZOSTER VACCINE (1 of 2) 2006 COVID-19 VACCINE (1 - 2023-2 5 season) 2024 DEPRESSION SCREENING 10/16/2024 INFLUENZA VACCINE (#1) 2025 07/27/2018 Respiratory Syncytial Virus (RSV) Vaccine Pt: or over 60 yrs (1 - 1-dose 75+ series) 2031 HEPATITIS B VACCINE Aged Out No longe r eligible based on patient's age to complete this topic HIB VACCINE Aged Out No longer eligi ble based on patient's age to complete this topic HPV VACCINE Aged Out No longer eligi ble based on patient's age to complete this topic MENINGOCOCCAL (Group B) VACC INE SHARED DECISION-MAKING Aged Out No longer eligibl e based on patient's age to complete this topic MENINGOCOCCAL GROUPS A/C/Y/W VACCINE Aged Out No longer eligible b ased on patient's age to complete this topic Insurance [facility]LY [facility] [place] [address] [facility] MEDICARE Care Teams Senior C Web Developer Relationship Specialty Start Date End Date Messi Back MD [address] [place] [place] [id number] PCP - General 05/10/22
== END 2025-06-03 09:35 | disposition home or self-care (01) ==
PROVIDERS: PCP Family Medicine
DX: R26.81 Unsteadiness on feet (principal); Z98.890 Other specified postprocedural states; R29.898 Other symptoms and signs involving the musculoskeletal system; M54.30 Sciatica, unspecified side; M51.369 Other intervertebral disc degeneration, lumbar region without mention of lumbar back pain or lower extremity pain
CPT/HCPCS: 72148

== ENCOUNTER 2025-07-01 07:57 | Day surgery (SDC) | payer MEDICARE, SELFPAY ==
[2025-06-25 13:33] VITALS: BMI 5269.5
--- NOTE | ~2025-07-01 | XR_ITS ---
XR fluoroscopy no charge Indication:left L5-S1, S1-S2 transforaminal epidural steroid injection TECHNIQUE: Fluoroscopy used during left L5-S1, S1-S2 transforaminal epidural steroid injection performed by [Damon Munoz MD] on 07/01/2025. 33 seconds of fluoroscopy time with 4 fluoroscopic images captured. FINDINGS: Correlate with procedure note. IMPRESSION: Fluoroscopy used during left L5-S1, S1-S2 transforaminal epidural steroid injection. Reviewed, dictated and finalized at location O. IMPRESSION: Fluoroscopy used during left L5-S1, S1-S2 transforaminal epidural s teroid injection.
--- OUTSIDE RECORDS SUMMARY | 2025-07-01 08:38 | XMS_ITS | Clinical Summary ---
Author Organization [facility] Address [address] [place] [address] Care Team Providers Care Designer/Writer Name Role Phone Messi Back MD Primary Care Provider [phone] Source Comments [facility],non-owned Affiliates and Associated Physician Practices is amultiple site organization consisting of ambulatory clinics and hospital sitesin [place], [place], [place] and [place]. This disclosure is being madepursuant to the Care Everywhere program and may not contain all information available regarding this patient. Last updated 18.[facility] [email or web address] Allergies Active Allergy Reactions Criticality Noted Date [...] 2006 ZOSTER VACCINE (1 of 2) 2006 DEPRESSION SCREENING 10/16/2024 COVID-19 VACCINE (1 - 2023-2 5 season) 2025 INFLUENZA VACCINE (#1) 2025 07/27/2018 Respiratory Syncytial [...] patient's age to complete this topic Insurance [facility] [place] [address] [facility] MEDICARE Care Teams Designer/Writer Relationship Specialty Start Date End Date Messi Back MD [address] [place] [id number] PCP - General 05/10/22
[2025-07-01 08:41] VITALS: BP 142/89; PULSE 70; RESP 16; TEMP 36.5; O2SAT 95
[2025-07-01] MEDS: LIDOCAINE 2% LOCAL INJ 20 ML VIAL INFILTRATE (08:55)
[2025-07-01] MEDS: dexAMETHasone SOD PHOS INJ 10 MG/ML 1 ML VIAL IM ×2 (08:55→09:44)
--- NOTE | 2025-07-01 09:08 | WPDHPUPDATE1 ---
History and Physical Update Update Date/Time: 07/01/25 09:08 History and Physical has been reviewed, including an updated exam of the patient. There are NO changes in the patient's condition. Risks, benefits, and alternatives have been discussed and questions answered. Patient agrees to proceed with procedure.
--- NOTE | 2025-07-01 09:09 | P.OP_ITS ---
Procedure Note - Detailed Date of Procedure 07/01/25 Pre-op Diagnosis Lumbosacral radiculopathy, lumbar spinal stenosis Post-op Diagnosis Same Procedure Performed Left lumbosacral Transforaminal Epidural Steroid Injection under Fluoroscopic Guidance and with Contrast Control at L5-S1, S1-S2. Surgeon Damon Munoz MD Anesthesia Local Description of Procedure INFORMED CONSENT: Risks, benefits and alternatives to the procedure were discussed in detail with the patient who expressed explicit understanding and consent to proceed. Patient was informed verbally and in written form regarding the risks associated with the procedure including the low risk of serious infection, bleeding/bruising, allergic reaction, nerve or organ injury, paralysis, procedural site pain or discomfort, worsening pain and/or mobility, failure to treat and/or disfigurement. The patient expressed explicit understanding and consent to proceed. All materials required for the procedure were available prior to procedure start. Site and side was marked prior to procedure and confirmed in the presence of the patient. PROCEDURE IN DETAIL: The patient was brought to the procedural suite and placed in the prone position. Patient was made comfortable with use of pillows under the head/chest, hips and ankles. Skin overlying the injection site was prepared broadly with ChloraPrep applicator and draped in a sterile manner. Aseptic technique was employed throughout. The endplates of the vertebral body at the site of interest were aligned in the AP view. Ipsilateral oblique angulation was utilized to better visualize the neuroforamen of interest. Local anesthesia was established by infiltration with approximately 5 mL of 0.5% PF lidocaine via a 1-1/2 inch 27-gauge needle. A 22-gauge 3.5 inch Lin (pencil point) spinal needle was advanced until the needle approached the 6 o'clock position on the pedicle just superior to the exiting nerve root. on the left at L5-S1. Lateral view was utilized to confirm appropriate position of the needle tip within the superior and posterior portion of the respective foramen. In an AP view, 1 mL of Omnipaque 300 contrast medium was injected after negative aspiration for CSF, blood or other bodily fluid, showing appropriate neurogram without evidence of intravascular or intrathecal spread of contrast. Digital subtraction imaging was used with an additional 1ml of the same contrast medium to confirm absence of intravascular contrast spread. A 1mL solution containing 5 mg of dexamethasone was injected after negative repeat aspiration. Appropriate spread of the injectate was confirmed with washout of previously injected contrast. No parasth esias were elicited. Needle was removed completely intact without difficulty. The same exact procedure was repeated for all remaining levels on the ipsilateral side, left S1-S2 posterior neuroforamen, modified as necessary to accommodate for the new target location with identical findings and results and no evidence of complication. Images were saved and documented in the patient chart. Patient's skin was cleaned and sterile bandage applied. The patient tolerated the procedure well. The patient was transported to the recovery area in stable condition where they were observed for an appropriate amount of time prior to discharge, without evidence of complication. The patient was instructed to avoid excessive activity for the next 48 hours, including climbing and frequent use of stairs. Showers only for 48 hours. They were instructed not to drive or operate heavy machinery for 24 hours. They are to monitor for severe headaches, fevers, chills, night sweats, erythema/swelling at the site or any other signs of infection, bleeding/bruising, bowel or bladder changes as well as new pain, weakness or numbness in the upper or lower extremity. Should they notice these changes, they are instructed to call our office immediately or report directly to the nearest Emergency Department if no answer or if after posted office hours. COMPLICATIONS: None COMMENTS: None CONTRAST WASTED: 26 mL Omnipaque 300. Complications No immediate complications Condition Stable Disposition Same day [facility] Billing Surgery - Charge Forward: Surgery Billing
[2025-07-01 09:39] VITALS: BP 125/70; PULSE 74; RESP 17; O2SAT 97
[2025-07-01 09:44] VITALS: BP 134/75; PULSE 75; RESP 19; O2SAT 98
[2025-07-01] MEDS: LIDOCAINE 2% PF LOCAL INJ 5 ML VIAL 2 ML INFILTRATE (09:47)
[2025-07-01 09:54] VITALS: BP 129/80; PULSE 72; RESP 16; O2SAT 100
== END 2025-07-01 10:04 | disposition home or self-care (01) ==
PROVIDERS: PCP Family Medicine; Visit Provider Anesthesiology Pain Medicine
PROC: (CPT 64483; principal; 2025-07-01 09:10)
DX: M48.061 Spinal stenosis, lumbar region without neurogenic claudication (principal); M54.17 Radiculopathy, lumbosacral region
CPT/HCPCS: 64483; 64484; 99199; J1100

== ENCOUNTER 2025-09-16 08:28 | Outpatient (CLI) | payer MEDICARE, SELFPAY ==
--- NOTE | ~2025-09-16 | MM_ITS ---
EXAMINATION: MM screening david BI w jama HISTORY: Screening. TECHNIQUE: Craniocaudal and mediolateral oblique 3-D tomosynthesis images were obtained and synthetic 2-D images were generated. CAD analysis was submitted and interpreted. COMPARISON: 2017, 2016, and 2014. BREAST PARENCHYMAL COMPOSITION: Not Dense: The breasts are almost entirely fatty FINDINGS: There are waxing and waning circumscribed nodules/masses, consistent with breast cysts. No suspicious masses are seen. There are no suspicious calcifications. No unexplained architectural distortion is seen. There are no skin or nipple abnormalities identified. There is no adenopathy seen on the images submitted. IMPRESSION: No mammographic evidence to suggest malignancy is seen. The patient may return to screening mammography as per ACR guidelines. BI-RADS 2 - Benign. Reviewed, dictated and finalized at location B. ICAL SUPPORT NURSE
--- OUTSIDE RECORDS SUMMARY | 2025-09-16 08:36 | XMS_ITS | Clinical Summary ---
Author Organization [facility] Address [address] [place] [address] Care Team Providers Care Data Architect Manager Name Role Phone Messi Back MD Primary Care Provider [phone] Source Comments [facility],non-owned Affiliates and Associated Physician Practices is amultiple site organization consisting of ambulatory clinics and hospital sitesin [place], [place], [place] and [place]. This disclosure is being madepursuant to the Care Everywhere program and may not contain all information available regarding this patient. Last updated 18.[facility] [employer] Allergies Active Allergy Reactions Criticality Noted Date [...] DEPRESSION SCREENING 10/16/2024 COVID-19 VACCINE (1 - 2024-2 6 season) 2025 INFLUENZA VACCINE (#1) 2025 07/27/2018 [...] patient's age to complete this topic Insurance [facility] [place] [id number] [facility] Care Teams Data Architect Manager Relationship Specialty Start Date End Date Messi Back MD [address] [place] [id number] PCP - General 05/10/22
== END 2025-09-16 08:29 | disposition home or self-care (01) ==
LOC: ANHFOHIMG 08:29
PROVIDERS: PCP Family Medicine; Visit Provider Physician Assistant Medical
DX: Z12.31 Encounter for screening mammogram for malignant neoplasm of breast (principal)
CPT/HCPCS: 77063; 77067